=== PATIENT | female | born 1990 | race Asian ===

== ENCOUNTER 2025-05-20 14:55 | Outpatient (AMB) | payer OTHER, SELFPAY ==
--- NOTE | 2025-05-20 14:57 | A.OFFPC_ITS ---
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 Intake Note: patient here for new patient visit Service Order Taker Required: No Is last menstrual period known: No Post menopausal: No Patient : No Allergies sulfamethoxazole (From Bactrim) Allergy (Intermediate, Verified 05/20/25 15:03) Fever trimethoprim (From Bactrim) Allergy (Intermediate, Verified 05/20/25 15:03) Fever Medication List - Last Reconciled 05/20/25 by Itz Ocasio MD albuterol sulfate 90 mcg/actuation (Ventolin HFA) 2 puffs inhalation Q4-6H PRN 30 days azithromycin (Zithromax Z-Kraig) take 500 mg today (day 1), then 250 mg for 4 days (days 2-5) PO 5 days norethindrone acetate 10 mg PO DAILY prednisone 4 tabs daily for 4 days, 3 tabs daily for 2 days, 2 tabs daily for 2 days, 1 tab daily for 2 days PO daily; 10 days Tobacco use date assessed: 05/20/25 Dental Screening Dental Screen Date: 05/20/25 Did you have a dental visit in the last 12 months?: Yes Did you have a dental problem in the last 6 months where you did not have access to dental care?: No Was dental information given to patient?: Patient has dentist 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 ?? Prior PCP:? None Last office visit/CPE:? na Acute issue(s):? Cough x a few mos earlier had some SOB. Clear mucous Weight Lightheadedness PMHx:?Fibriods, Endometriosis Surgeon Corrie Walker [facility], Anemia, Menorrhagia, s/p Myomectomy SurgHx:? Myomectomy x 2 FHx:? Mom: Ovarian tumors, Liver disease. DAd: unknown SocHx:? Nonsmoker. 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 1. Little interest or pleasure in doing things: not at all 2. Feeling down, depressed, or hopeless: not at all 3. Trouble falling or staying asleep, or sleeping too much: not at all 4. Feeling tired or having little energy: several days 5. Poor appetite or overeating: several days 6. Feeling bad about yourself - or that you are a failure or have let yourself or your family down: not at all 7. Trouble concentrating on things, such as reading the newspaper or watching television: not at all 8. Moving or speaking so slowly that other people could have noticed. Or the opposite - being so fidgety or restless that you have been moving around a lot more than usual: not at all 9. Thoughts that you would be better off or of hurting yourself in some way: not at all Total score: 2 Depression Screening Interpretation: Negative Depression Screening Done: Yes 90410 - PHQ-9 Billing: Yes Source: Developed by Drs. George Lim, Michelle Soria, Jesse Grewal and colleagues, with an educational jaciel from [employer]. Thrive Questionnaire Date Thrive assessed: 05/20/25 I am a: Patient What is your living situation today?: I have a steady place to live Within the past 12 months, did the food you bought not last and you didn't have the money to get more?: Never true Within the past 12 months, did you worry whether your food would run out before you got money to buy more?: Never true Do you have trouble paying for medicines?: No Do you have trouble getting transportation to medical appointments?: No Do you have trouble paying your heating and electricity bill?: No Do you have trouble taking care of your child, family member or friend?: No Do you have trouble with day-to-day activities such as bathing, preparing meals, shopping, managing finances, etc.?: No Are you currently unemployed and looking for a job?: No Are you interested in more education?: Yes Please select the resources that you would like help with: None Currently or been in a relationship where the following occur: No concerns reported THRIVE Score: 0 AUDIT C Alcohol Use Questionnaire (AUDIT-C) 1. How often do you have a drink containing alcohol?: Never 3. How often do you have six or more drinks on one occasion?: Never Total Score: 0 SIXTO-7 AMB Questionnaire SIXTO-7 Date SIXTO - 7 assessed: 05/20/25 Feeling nervous, anxious, or on edge: 0 = Not at all Not being able to stop or control worryin = Not at all Worrying too much about different things: 0 = Not at all Trouble relaxin = Several days Being so restless that it is hard to sit still: 0 = Not at all Becoming easily annoyed or irritable: 0 = Not at all Feeling afraid as if something awful might happen: 0 = Not at all Total SIXTO-7 score (0-4 normal; 5-9 mild; 10-14 moderate; 15-21 severe): 1 Source: Developed by Drs. George Lim, Michelle Soria, Jesse Grewal and colleagues, with an educational jaciel from [employer]. SIXTO-7 Assessment Billing SIXTO-7 Assessment Tool: SIXTO-7 Assessment 91878 Review of Systems Const Denies chills, Denies fatigue, Denies fever(s), Denies headache(s) and Denies weakness ENT Denies dizziness and Denies headache(s) Card Denies chest pain, Denies lightheadedness, Denies dyspnea and Denies other (Palpitations) Resp Reports cough, Denies dyspnea, Denies wheezing and Denies other ( shortness of breath) Musc Denies numbness and Denies tingling Neuro Denies dizziness, Denies headache(s), Denies numbness, Denies tingling, Denies paresthesias and Denies weakness Psych Denies anxiety and Denies depression Endo Denies fatigue Aller/Immun Denies wheezing Physical exam (Primary Care) Vital Signs: Last Vital Signs Temp 98.2 F 05/20/25 15:05 Pulse 96 05/20/25 15:05 Resp 16 05/20/25 15:05 BP 109/53 L 05/20/25 15:05 Pulse Ox 96 05/20/25 15:05 Oxygen Delivery Method Room Air 05/20/25 15:05 BMI result Body Mass Index 34.1 Tobacco/Smoking Status: Tobacco use Status Tobacco use date assessed 05/20/25 05/20/25 15:05 Patient Tobacco Use Status Never used Tobacco 05/20/25 15:05 e-Cigarette/Vaping Use Never Used 05/20/25 15:05 PHQ-9: PHQ-9 Score PHQ-9: Total score 2 05/20/25 15:01 Depression Screening Interpretation: Negative Thrive Assessment: Date of Thrive Assessment Date Thrive assessed 05/20/25 05/20/25 15:01 Currently or been in a relationship where the following occur: No concerns reported Const General: no acute distress and well developed Nutritional Appearance: well nourished Orientation/consciousness: patient oriented x3 HENMT Head: Yes normocephalic and Yes atraumatic Eyes General: appearance normal, both eyes and all related structures Pupils: Equal, round and reactive pupils present EOM: EOMs intact bilaterally Resp Effort & Inspection: normal respiratory effort Auscultation: clear to auscultation bilaterally Cardio Rate: regular rate Rhythm: regular rhythm Heart sounds: S1 normal heart sound present, S2 normal heart sound present, no gallops, no murmurs and no rubs Neuro General: patient oriented x3 and gait normal Cranial nerves: Yes Equal, round and reactive pupils present Psych Affect: normal affect Coding Level of Care Code New Pt Level 3 (75150) Diagnoses Cough R05.9 Obesity E66.9 Abnormal menstrual periods N92.6 Lightheadedness R42 Laboratory exam ordered as part of routine general medical examination Z00.00 Additional Codes SIXTO-7 Assessment Billing - SIXTO-7 Assessment Tool: SIXTO-7 Assessment 40015 ([id number]) PHQ-9 - 32574 - PHQ-9 Billing: Yes ([id number]) Assessment & Plan Assessment & Plan (1) Cough: Code(s): R05.9 - Cough, unspecified Category: Medical Plan: Longstanding cough for months Patient has significant allergies and also notes that she gets relief when she uses her 's albuterol inhaler Lungs with significant wheezing/musical quality No diminished breath sounds Will get a chest x-ray Start Z-Kraig and prednisone Will give her an albuterol inhaler Continue cetirizine Referring her to immunology (2) Obesity: Code(s): E66.9 - Obesity, unspecified Category: Medical Plan: Check labs Will discuss further at her next visit (3) Abnormal menstrual periods: Code(s): N92.6 - Irregular menstruation, unspecified Category: Medical Plan: Irregular and heavy menstrual periods with anemia History of myomectomy and endometriosis Referring her to OBGYN Patient [facility] (4) Lightheadedness: Code(s): R42 - Dizziness and giddiness Category: Medical Plan: Mild regarding lightheadedness this morning. No CP She sometimes tries intermittent fasting and does not drink much fluid Also notes that she is anemic Encouraged plenty of fluids and electrolytes (5) Laboratory exam ordered as part of routine general medical examination: Code(s): Z00.00 - Encounter for general adult medical examination without abnormal findings Category: Medical Plan: Check labs Orders: Orders XR chest 2V Today R05.9 - Cough, unspecified Complete Blood Count Auto Diff Today N92.6 - Irregular menstruation, unspecified, Z00.00 - Encounter for general adult medical examination without abnormal findings IRON PROFILE Today N92.6 - Irregular menstruation, unspecified Vitamin B12 and Folate Today E53.8 - Deficiency of other specified B group vitamins, N92.6 - Irregular menstruation, unspecified Lipid Panel Today Z00.00 - Encounter for general adult medical examination without abnormal findings UA CC w/rflx Micro + Cult Today Z00.00 - Encounter for general adult medical examination without abnormal findings Comprehensive [place]. Panel Fast Today N92.6 - Irregular menstruation, unspecified, Z00.00 - Encounter for general adult medical examination without abnormal findings Microalbumin, Random (w Creat) Today I10 - Essential (primary) hypertension, Z00.00 - Encounter for general adult medical examination without abnormal findings TSH reflex Free T4 Today Z00.00 - Encounter for general adult medical examination without abnormal findings Referrals ASSEMBLER SEMICONDUCTOR Referral Z00.00 - Encounter for general adult medical examination with out abnormal findings Medications: New albuterol sulfate 90 mcg/actuation (Ventolin HFA) 2 puffs inhalation Q4-6H PRN 8.5 grams 3RF shortness of breath or wheezing 30 days prednisone 4 tabs daily for 4 days, 3 tabs daily for 2 days, 2 tabs daily for 2 days, 1 tab daily for 2 days PO daily; 28 tabs 0RF 10 days azithromycin (Zithromax Z-Kraig) take 500 mg today (day 1), then 250 mg for 4 days (days 2-5) PO 6 tabs 0RF 5 days
[2025-05-20 15:05] VITALS: BP 109/53; PULSE 96; RESP 16; TEMP 36.8; O2SAT 96; BMI 34.1
== END 2025-05-20 16:15 | disposition home or self-care (01) ==
LOC: HO.HMCFM 14:56
PROVIDERS: PCP Family Medicine; Visit Provider Family Medicine
DX: R05.9 Cough, unspecified (principal); E66.9 Obesity, unspecified; Z68.34 Body mass index [BMI] 34.0-34.9, adult; N92.6 Irregular menstruation, unspecified; R42 Dizziness and giddiness

== ENCOUNTER → 2025-05-20 14:55 | Outpatient (BNVA) | payer OTHER, SELFPAY | PROVIDERS: PCP Family Medicine; Visit Provider Family Medicine | DX: Z00.00 Encounter for general adult medical examination without abnormal findings (principal); R05.9 Cough, unspecified; E66.9 Obesity, unspecified; N92.6 Irregular menstruation, unspecified; R42 Dizziness and giddiness; E53.8 Deficiency of other specified B group vitamins; Z68.34 Body mass index [BMI] 34.0-34.9, adult | CPT/HCPCS: 96127; 99202 ==

== ENCOUNTER 2025-05-24 12:54 | Outpatient (REF) | payer OTHER, SELFPAY ==
--- NOTE | ~2025-05-24 | XR_ITS ---
EXAMINATION: XR CHEST 2 VIEWS HISTORY: R05.9 - Cough, unspecified COMPARISON: There are no prior studies available for comparison. FINDINGS: PA and lateral views of the chest are submitted. The lungs are expanded and clear. There is no pleural effusion, pneumothorax, or pulmonary vascular congestion. The heart is normal in size. The bones are intact. XR/XR chest 2V IMPRESSION: Normal examination of the chest. Electronically signed by: George Solis MD 05/24/2025 01:55 PM EDT
[2025-05-24 13:32] LABS: MANUAL DIFF FLAG NO
[2025-05-24 14:18] LABS: Hematocrit 41.7 % (37.0-47.0); Hemoglobin 14.4 g/dl (12.0-16.0); Imm Gran Abs Auto 0.10 X10*3/uL (0.00-0.03); Imm Gran Pct Auto 0.7 % (0.0-0.4); Lymphocytes Absolute Auto 4.2 X10*3/uL (1.2-4.9); Mean Corpuscular HGB Conc 34.5 g/dl (31.0-35.0); Mean Corpuscular Hemoglobin 32.4 pg (27.0-33.0); Mean Corpuscular Volume 93.7 fL (80.0-98.0); NRBC Abs Auto 0.000 X10*3/uL (0.0-0.012); NRBC Pct Auto 0.0 /100WBC (0.0-0.2); Platelet Count 239 X10*3/uL (160-400); Red Blood Count 4.45 X10*6/uL (4.20-5.50); White Blood Count 14.3 X10*3/uL (4.8-10.8)
[2025-05-24 14:44] LABS: Appearance Urine Clear; Glucose Urine UA Negative (Negative); PH 6.5 (5.0-9.0); Specific Gravity - Urine 1.015 (1.005-1.025)
[2025-05-24 14:59] LABS: Alanine Aminotransferase 26 U/L (0-31); Albumin Level 4.3 g/dL (3.5-5.0); Alkaline Phosphatase 66 U/L (39-117); Anion Gap 11 (12-20); Aspartate Amino Transferase 26 U/L (5-31); Blood Urea Nitrogen 8 mg/dL (9-16); Calcium 8.7 mg/dL (8.4-10.2); Carbon Dioxide 21 mmol/L (22-29); Chloride 112 mmol/L (96-108); Cholesterol 190 mg/dL (<200); Estimated Glomerular Filt Rate > 60; HDL Cholesterol 49 mg/dL (>40); Iron 94 mcg/dL (30-160); Percent Iron Saturation 31 % (15-50); Potassium 3.7 mmol/L (3.3-5.1); Sodium 140 mmol/L (135-145); Total Iron Binding Capacity 307 mcg/dL (228-428); Total Protein 7.2 g/dL (6.5-8.0); Triglycerides 67 mg/dL (<150); Unsaturated Iron Binding 213 ug/dL
[2025-05-24 15:15] LABS: Folate 13.7 ng/mL (> or = 4.0); Vitamin B12 1465 pg/mL (200-900)
[2025-05-24 15:33] LABS: Microalbum/Creatinine Ratio Ur 3.4 ug/mg cr (<30)
== END 2025-05-24 12:55 | disposition home or self-care (01) ==
LOC: HO.XRAY 12:54
PROVIDERS: PCP Family Medicine; Visit Provider Family Medicine
DX: Z00.00 Encounter for general adult medical examination without abnormal findings (principal); R05.9 Cough, unspecified; E53.8 Deficiency of other specified B group vitamins; N92.6 Irregular menstruation, unspecified; I10 Essential (primary) hypertension
CPT/HCPCS: 36415; 71046; 80053; 80061; 81003; 82043; 82570; 82607; 82746; 83540; 84443; 85025

== ENCOUNTER → 2025-05-24 13:37 | Outpatient (BNV) | payer OTHER, SELFPAY | PROVIDERS: PCP Family Medicine; Visit Provider Radiology Diagnostic Radiology | DX: R05.9 Cough, unspecified (principal) | CPT/HCPCS: 71046 ==

== ENCOUNTER 2025-06-23 09:46 | Outpatient (AMB) | payer OTHER, SELFPAY ==
--- NOTE | 2025-06-23 09:49 | A.OFFPC_ITS ---
Vital Signs 06/23/25 09:58 Height 5 ft 3 in Weight 197 lb 6 oz BMI 35.0 BP 110/60 Blood Pressure Location Lt brachial Position Sitting Respiration 18 Pulse 92 Pulse Source Pulse Oximeter Temp 97 F Temp Source Oral Pulse Oximetry (%) 98 Oxygen Delivery Method Room Air Intake Visit Reasons: f/u cough, chest xray Intake Note: patient is scheduled to discuss cough and chest x-ray results along with lab results. 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 Chest x-ray was normal. Labs drawn 05/24/25. Reviewed labs with pt. Triglycerides 67. TC 190. LDL 128. HDL 49. Vitamin B12 1465. Pt describes episode where she became dizzy and had passed out. 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 Current occupational exposures/hazards: No Cognitive needs: No Hearing needs: No Vision needs: Yes Questionnaire Thrive Questionnaire Date Thrive assessed: 05/13/25 I am a: Patient What is your living situation today?: I have a steady place to live Within the past 12 months, did the food you bought not last and you didn't have the money to get more?: Never true Within the past 12 months, did you worry whether your food would run out before you got money to buy more?: Never true Do you have trouble paying for medicines?: No Do you have trouble getting transportation to medical appointments?: No Do you have trouble paying your heating and electricity bill?: No Do you have trouble taking care of your child, family member or friend?: No Do you have trouble with day-to-day activities such as bathing, preparing meals, shopping, managing finances, etc.?: No Are you currently unemployed and looking for a job?: No Are you interested in more education?: Yes Please select the resources that you would like help with: None Currently or been in a relationship where the following occur: No concerns reported THRIVE Score: 0 SIXTO-7 AMB Questionnaire SIXTO-7 Date SIXTO - 7 assessed: 05/20/25 Source: Developed by Drs. George Lim, Michelle Soria, Jesse Grewal and colleagues, with an educational jaciel from [employer]. Review of Systems Const Denies chills, Denies fatigue, Denies fever(s), Denies headache(s) and Denies weakness ENT Denies dizziness and Denies headache(s) Card Denies chest pain, Denies lightheadedness, Denies dyspnea and Denies other (Palpitations) Resp Denies cough, Denies dyspnea, Denies wheezing and Denies other ( shortness of breath) Musc Denies numbness and Denies tingling Neuro Denies dizziness, Denies headache(s), Denies numbness, Denies tingling, Denies paresthesias and Denies weakness Psych Denies anxiety and Denies depression Endo Denies fatigue Aller/Immun Denies wheezing Physical exam (Primary Care) Vital Signs: Last Vital Signs Temp 97 F 06/23/25 09:58 Pulse 92 06/23/25 09:58 Resp 18 06/23/25 09:58 BP 110/60 06/23/25 09:58 Pulse Ox 98 06/23/25 09:58 Oxygen Delivery Method Room Air 06/23/25 09:58 BMI result Body Mass Index 35.0 Tobacco/Smoking Status: Tobacco use Status Tobacco use date assessed 05/20/25 06/23/25 09:51 Patient Tobacco Use Status Never used Tobacco 06/23/25 09:51 e-Cigarette/Vaping Use Never Used 06/23/25 09:51 Thrive Assessment: Date of Thrive Assessment Date Thrive assessed 05/13/25 06/23/25 09:51 Currently or been in a relationship where the following occur: No concerns reported Const General: no acute distress and well developed Nutritional Appearance: well nourished Orientation/consciousness: patient oriented x3 HENMT Head: Yes normocephalic and Yes atraumatic Eyes General: appearance normal, both eyes and all related structures Pupils: Equal, round and reactive pupils present EOM: EOMs intact bilaterally Resp Other: Faint wheezing Effort & Inspection: normal respiratory effort Auscultation: clear to auscultation bilaterally Cardio Rate: regular rate Rhythm: regular rhythm Heart sounds: S1 normal heart sound present, S2 normal heart sound present, no gallops, no murmurs and no rubs Neuro General: patient oriented x3 and gait normal Cranial nerves: Yes Equal, round and reactive pupils present Psych Affect: normal affect Coding Level of Care Code Est Pt Level 4 (18012) Diagnoses Cough R05.9 Elevated LDL cholesterol level E78.00 Syncope R55 Assessment & Plan Assessment & Plan (1) Cough: Code(s): R05.9 - Cough, unspecified Category: Medical Plan: Significantly improved with albuterol and prednisone She continues albuterol and is using a few times a week and a couple of times each day when she does use it Lungs significantly improved though she does still have some faint scattered wheezes. Oxygen saturations have been a little low still Will give her a controller medication - take twice a day and use albuterol when have symptoms. Now followed by immunology for significant allergies. She says testing showed she has many allergies - continue following with immunology (2) Elevated LDL cholesterol level: Code(s): E78.00 - Pure hypercholesterolemia, unspecified Category: Medical Plan: Work on a diet low in saturated fats and cholesterol Will recheck prior to next visit (3) Syncope: Code(s): R55 - Syncope and collapse Category: Medical Plan: Patient notes that she became dizzy and passed out She does not drink enough water and I encouraged her to increase this as dehydration may be contributing Also oxygen saturation levels are sometimes low No anemia. Labs unrevealing. EKG today: Normal sinus rhythm, normal axis, hypertrophy, no ST-T-wave changes Check Holter monitor test Orders: Orders Lipid Panel Today E78.00 - Pure hypercholesterolemia, unspecified, Z00.00 - Encounter for general adult medical examination without abnormal findings Comprehensive [place]. 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
[2025-06-23 09:58] VITALS: BP 110/60; PULSE 92; RESP 18; TEMP 36.1; O2SAT 98; BMI 35.0
== END 2025-06-23 10:40 | disposition home or self-care (01) ==
LOC: HO.HMCFM 09:47
PROVIDERS: PCP Family Medicine; Visit Provider Family Medicine
DX: R05.9 Cough, unspecified (principal); E78.00 Pure hypercholesterolemia, unspecified; R55 Syncope and collapse

== ENCOUNTER → 2025-06-23 09:46 | Outpatient (BNVA) | payer OTHER, SELFPAY | PROVIDERS: PCP Family Medicine; Visit Provider Family Medicine | DX: R42 Dizziness and giddiness (principal); R55 Syncope and collapse; R05.9 Cough, unspecified; R06.2 Wheezing; R09.02 Hypoxemia | CPT/HCPCS: 99212 ==

== ENCOUNTER → 2025-07-05 09:26 | Outpatient (REF) | payer OTHER, SELFPAY ==
--- NOTE | 2025-07-05 09:29 | HM_ITS ---
Conclusion: 1. Patient was monitored for total period of 2 days 2. Baseline was normal sinus rhythm with average heart of 78 beats per minute 3. No significant pauses or arrhythmias noted 4. No patient reported events MTDD
== END ==
LOC: HO.CARD 09:26
PROVIDERS: PCP Family Medicine; Visit Provider Family Medicine
DX: R55 Syncope and collapse (principal)
CPT/HCPCS: 93225

== ENCOUNTER → 2025-07-05 09:29 | Outpatient (BNV) | payer OTHER, SELFPAY | PROVIDERS: PCP Family Medicine; Visit Provider Internal Medicine Cardiovascular Disease | DX: R55 Syncope and collapse (principal) | CPT/HCPCS: 93227 ==

== ENCOUNTER 2025-08-18 10:39 | Outpatient (REF) | payer OTHER, SELFPAY ==
[2025-08-18 11:55] LABS: Alanine Aminotransferase 23 U/L (0-31); Albumin Level 4.7 g/dL (3.5-5.0); Alkaline Phosphatase 72 U/L (39-117); Anion Gap 13 (12-20); Aspartate Amino Transferase 27 U/L (5-31); Blood Urea Nitrogen 8 mg/dL (9-16); Calcium 9.2 mg/dL (8.4-10.2); Carbon Dioxide 27 mmol/L (22-29); Chloride 104 mmol/L (96-108); Cholesterol 193 mg/dL (<200); Estimated Glomerular Filt Rate > 60; HDL Cholesterol 49 mg/dL (>40); Potassium 4.2 mmol/L (3.3-5.1); Sodium 140 mmol/L (135-145); Total Protein 7.5 g/dL (6.5-8.0); Triglycerides 89 mg/dL (<150)
== END 2025-08-18 10:40 | disposition home or self-care (01) ==
LOC: HO.LAB 10:39
PROVIDERS: PCP Family Medicine; Visit Provider Family Medicine
DX: Z00.00 Encounter for general adult medical examination without abnormal findings (principal); E78.00 Pure hypercholesterolemia, unspecified
CPT/HCPCS: 36415; 80053; 80061

== ENCOUNTER 2025-08-27 08:28 | Outpatient (AMB) | payer OTHER, SELFPAY ==
--- NOTE | 2025-08-27 08:32 | A.OFFPC_ITS ---
Vital Signs 08/27/25 08:36 Height 5 ft 3 in Weight 195 lb 2 oz BMI 34.6 BP 98/62 Blood Pressure Location Rt brachial Position Sitting Respiration 16 Pulse 87 Pulse Source Pulse Oximeter Temp 97.8 F Temp Source Temporal Artery Scan Pulse Oximetry (%) 95 Oxygen Delivery Method Room Air Intake Visit Reasons: f/u Wheezing/Cough & Syncope Intake Note: An presents in the office today for a follow up to wheezing, cough and syncope. Refrigeration Insulator Required: No Is last menstrual period known: No Post menopausal: No Patient : No Allergies sulfamethoxazole (From Bactrim) Allergy (Intermediate, Verified 08/27/25 08:35) Fever trimethoprim (From Bactrim) Allergy (Intermediate, Verified 08/27/25 08:35) Fever Medication List - Last Reconciled 08/27/25 by Itz Ocasio MD albuterol sulfate 90 mcg/actuation (Ventolin HFA) 2 puffs inhalation Q4-6H PRN 30 days budesonide 180 mcg/actuation (Pulmicort Flexhaler) 1 inh inhalation BID 30 days norethindrone acetate 5 mg PO DAILY Tobacco use date assessed: 08/27/25 Dental Screening Dental Screen Date: 08/27/25 Did you have a dental visit in the last 12 months?: Yes Did you have a dental problem in the last 6 months where you did not have access to dental care?: No Was dental information given to patient?: Patient has dentist HPI f/u Wheezing/Cough & Syncope HPI Details 35 y/o female presents to f/u wheezing/c ough, syncope. Pt notes albuterol has been helping with her wheezing. Most recent labs show increased cholesterol. Pt would like to discuss weight loss meds. She notes she can pay out of pocket if she has to. Has tried changing her diet and pt notes ongoing difficulty with weight loss. HPI Comments History of Present Illness Details Documentation assistance for Itz Ocasio MD, was provided by Andrea Jimenes,? Stage Driver on 08/27/2025 at 8:49 AM JE. Dana, Dr. Ocasio, have read, observed, and verified documentation. ?? 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 Current occupational exposures/hazards: No Cognitive needs: No Hearing needs: No Vision needs: Yes Questionnaire Thrive Questionnaire Date Thrive assessed: 05/13/25 I am a: Patient What is your living situation today?: I have a steady place to live Within the past 12 months, did the food you bought not last and you didn't have the money to get more?: Never true Within the past 12 months, did you worry whether your food would run out before you got money to buy more?: Never true Do you have trouble paying for medicines?: No Do you have trouble getting transportation to medical appointments?: No Do you have trouble paying your heating and electricity bill?: No Do you have trouble taking care of your child, family member or friend?: No Do you have trouble with day-to-day activities such as bathing, preparing meals, shopping, managing finances, etc.?: No Are you currently unemployed and looking for a job?: No Are you interested in more education?: Yes Currently or been in a relationship where the following occur: No concerns reported THRIVE Score: 0 SIXTO-7 AMB Questionnaire SIXTO-7 Date SIXTO - 7 assessed: 05/20/25 Source: Developed by Drs. George Lim, Michelle Soria, Jesse Grewal and colleagues, with an educational jaciel from [employer]. Review of Systems Const Denies chills, Denies fatigue, Denies fever(s), Denies headache(s) and Denies weakness ENT Denies dizziness and Denies headache(s) Card Denies dyspnea Resp Denies cough, Denies dyspnea, Denies wheezing and Denies other (shortness of breath) Musc Denies numbness and Denies tingling Neuro Denies dizziness, Denies headache(s), Denies numbness, Denies tingling and Denies weakness Psych Denies anxiety and Denies depression Endo Denies fatigue Aller/Immun Denies wheezing Physical exam (Primary Care) Vital Signs: Last Vital Signs Temp 97.8 F 08/27/25 08:36 Pulse 87 08/27/25 08:36 Resp 16 08/27/25 08:36 BP 98/62 08/27/25 08:36 Pulse Ox 95 08/27/25 08:36 Oxygen Delivery Method Room Air 08/27/25 08:36 BMI result Body Mass Index 34.6 Tobacco/Smoking Status: Tobacco use Status Tobacco use date assessed 08/27/25 08/27/25 08:39 Patient Tobacco Use Status Never used Tobacco 08/27/25 08:36 e-Cigarette/Vaping Use Never Used 08/27/25 08:36 Thrive Assessment: Date of Thrive Assessment Date Thrive assessed 05/13/25 08/27/25 08:34 Currently or been in a relationship where the following occur: No concerns reported Const General: well developed; No acute distress Nutritional Appearance: well nourished Orientation/consciousness: patient oriented x3 HENMT Head: Yes normocephalic and Yes atraumatic Eyes General: appearance normal, both eyes and all related structures Pupils: Equal, round and reactive pupils present EOM: EOMs intact bilaterally Resp Effort & Inspection: normal respiratory effort Neuro General: patient oriented x3 and gait normal Cranial nerves: Yes Equal, round and reactive pupils present Psych Affect: normal affect Coding Level of Care Code Est Pt Level 4 (85509) Diagnoses Wheezing R06.2 Lightheadedness R42 Elevated LDL cholesterol level E78.00 Obesity E66.9 Assessment & Plan Assessment & Plan (1) Wheezing: Code(s): R06.2 - Wheezing Category: Medical Plan: Had given patient a controller medication at her last visit. She notes that her symptoms are now well controlled. Continue albuterol and Pulmicort as prescribed (2) Lightheadedness: Code(s): R42 - Dizziness and giddiness Category: Medical Plan: Patient had noticed some lightheadedness and EKG was normal. Appeared dehydrated and I had encouraged good hydration. She has had no further episodes A Holter monitor was performed however and this was normal. Encouraged patient to continue good hydration (3) Elevated LDL cholesterol level: Code(s): E78.00 - Pure hypercholesterolemia, unspecified Category: Medical Plan: LDL cholesterol remains too high Will start atorvastatin 10 mg daily (4) Obesity: Code(s): E66.9 - Obesity, unspecified Category: Medical Plan: Patient has been working on lifestyle changes but has not made significant improvements She would like to try a GLP 1 medication Will send a script for Anika. Will follow-up in a month Medications: New atorvastatin (Lipitor) 10 mg PO BEDTIME 90 tabs 2RF 90 days tirzepatide (Mounjaro) for 4 weeks 2.5 mg (0.5 mL) subcut QWEEK 2 mL 3RF 28 days Changed From norethindrone acetate 5 mg PO DAILY To norethindrone acetate 5 mg PO DAILY 28 tabs 11RF 28 days Refilled budesonide 180 mcg/actuation (Pulmicort Flexhaler) 1 inh inhalation BID 1 ea 3RF 30 days albuterol sulfate 90 mcg/actuation (Ventolin HFA) 2 puffs inhalation Q4-6H PRN 8.5 grams 3RF shortness of breath or wheezing 30 days
[2025-08-27 08:36] VITALS: BP 98/62; PULSE 87; RESP 16; TEMP 36.6; O2SAT 95; BMI 34.6
== END 2025-08-27 08:56 | disposition home or self-care (01) ==
LOC: HO.HMCFM 08:29
PROVIDERS: PCP Family Medicine; Visit Provider Family Medicine
DX: R06.2 Wheezing (principal); R42 Dizziness and giddiness; E78.00 Pure hypercholesterolemia, unspecified; E66.9 Obesity, unspecified

== ENCOUNTER → 2025-08-27 08:28 | Outpatient (BNVA) | payer OTHER, SELFPAY | PROVIDERS: PCP Family Medicine; Visit Provider Family Medicine | DX: R06.2 Wheezing (principal); R42 Dizziness and giddiness; E78.00 Pure hypercholesterolemia, unspecified; E66.9 Obesity, unspecified; Z68.34 Body mass index [BMI] 34.0-34.9, adult | CPT/HCPCS: 99212 ==